=== PATIENT | female | born 1940 | race Caucasian/White ===

== ENCOUNTER 2018-07-08 08:42 | Observation (INO) | payer MEDICARE, OTHER ==
[~2018-07-08] VITALS: Ht 165.1 cm; Wt 99.0 kg
[~2018-07-08 08:42] MED LIST: AMLODIPINE10 MG PO; BENAZEPRIL40 M1 PO; CIPROFLOXACN500 MG PO; ENABLEX15 MG OR; FLONASE NASAL50 MCG; FLORASTOR250 M1 PO; GLIMEPIRIDE2 MG PO; GLIMEPIRIDE4 MG PO; INDOMETHACIN25 MG PO; KEFLEX500 MG PO; LEVEMIR FLEXPEN SC; LOVASTATIN40 MG PO; METFORMIN1000 MG PO; METOPROL TAR25 MG PO; OXYBUTYNIN10 MG OR; PRAVASTATIN20 MG PO; PRILOSEC20 MG PO
--- NOTE | 2018-07-08 08:44 | NUR ---
PT TO ROOM VIA EMS
--- NOTE | 2018-07-08 09:10 | NUR ---
PT STATES THAT SHE NOTICED BLOODY STOOL THAT BEGAN YESTERDAY AT NOON- PT STATES FEELING INCREASED WEAKNESS. PT IS AOX4. STATES NO PAIN AT THIS TIME. PT DENIES ANY C/P, SOB, N/V.
[2018-07-08 09:32] LABS: HEMATOCRIT 41.5 % (37.0-47.0); IMMATURE GRANULOCYTES 0.4 % (0.0-5.0); MEAN CELL VOLUME 91.2 fL CALC (80.0-100.0); MEAN CORPUSCULAR HGB 30.8 pG CALC (26.0-32.0); MEAN CORPUSCULAR HGB CONC 33.7 g/L CALC (32.0-36.0); NEUT# 12.47 thou/uL (2.00-7.15); RED BLOOD COUNT 4.55 mill/uL (4.20-5.60); RED CELL DISTRI WIDTH 13.1 % (11.5-15.5)
[2018-07-08] MEDS ORDERED: GLIMEPIRIDE2 MG PO (09:36)
[2018-07-08 09:42] LABS: ALBUMIN 3.8 g/dL (3.2-5.0); BILIRUBIN, TOTAL 1.3 mg/dL (0.0-1.4); CREATININE 1.2 mg/dL (0.5-1.0); TOTAL PROTEIN 6.4 g/dL (6.3-8.2)
[2018-07-08 09:43] LABS: POTASSIUM 5.2 mmol/l (3.5-5.1)
--- NOTE | 2018-07-08 10:10 | NUR ---
PT RESTING ON STRETCHER, NO COMPLAINTS STATED AT THIS TIME.
--- NOTE | 2018-07-08 10:56 | NUR ---
NURSE IN PT ROOM, WILL RETURN CALL
--- NOTE | 2018-07-08 11:45 | NUR ---
ICU CALLED FOR REPORT- CHRISTOPHER KHANNA ACCEPTED PT
--- NOTE | 2018-07-08 11:45 | NUR ---
ICU CALLED FOR REPORT
--- NOTE | 2018-07-08 11:56 | NUR ---
female pt received to ICU bed 4 (med surg overflow) via stretcher accompanied by Adalberto Heck RN in stable condition; ambulatory to scale then bed with very weak/assisted gait; admission assessment completed at this time; pt alert and oriented; c/c of rectal bleeding with clots starting last night; no n/v associated with bleeding; pt denies pain; resp even and unlabored; lungs clear; skin color wnl; ra; hr reg; strong pulses; trace edema noted to ble; sr on monitor; abd soft with bs present; no rectal bleeding noted per card writer hand at this time; no stool to observe; admits to voiding without pain or burning; no urine to inspect; bsc; stress incont/brief intact; #20 ems site flushed and patent; no redness or edema noted at site; plan of care/ meds explained; call light within reach; will continue to monitor
[2018-07-08 12:00] VITALS: BP 147/73
--- NOTE | 2018-07-08 12:01 | NUR ---
Admission Note Report Given to: CHRISTOPHER Transported by: Wheelchair X Stretcher Transported with: X Nurse Transporter X Patent IV O2 X Lunchroom Food Service Supervisor TRANSPORTED TO ICU 4 WITHOUT INCIDENET
--- NOTE | 2018-07-08 14:10 | NUR ---
awake in bed conversing on cell phone; no apparent distress noted; pt offers no complaints; sr on monitor; call light within reach; will continue to monitor
[2018-07-08 15:08] LABS: CREATININE 1.1 mg/dL (0.5-1.0); POTASSIUM 5.1 mmol/l (3.5-5.1)
[2018-07-08 15:10] LABS: HEMATOCRIT 39.5 % (37.0-47.0); HEMOGLOBIN 13.6 g/dl (12.0-16.0); IMMATURE GRANULOCYTES 0.4 % (0.0-5.0); MEAN CELL VOLUME 91.2 fL CALC (80.0-100.0); MEAN CORPUSCULAR HGB 31.4 pG CALC (26.0-32.0); MEAN CORPUSCULAR HGB CONC 34.4 g/L CALC (32.0-36.0); NEUT# 11.54 thou/uL (2.00-7.15); RED BLOOD COUNT 4.33 mill/uL (4.20-5.60); RED CELL DISTRI WIDTH 13.2 % (11.5-15.5)
[2018-07-08 16:15] VITALS: BP 146/94
--- NOTE | 2018-07-08 16:15 | NUR ---
awake in bed conversing with visitors; no apparent distress noted; pt offers no complaints; denies needs; iv patent; fluids infusing without complication; no redness or edema noted at site; sr on monitor; call light within reach; will continue to monitor
--- NOTE | 2018-07-08 16:50 | NUR ---
Dr Marinelli present at bedside to assess pt and discuss plan of care
--- NOTE | 2018-07-08 17:47 | NUR ---
awake; tolerated meal; offers no complaints; iv patent; no redness or edema noted at site; denies needs; sr on monitor; call light within reach
--- NOTE | 2018-07-08 18:06 | NUR ---
cardinal rx Ericka called per development writer in regards to orders not verified
--- NOTE | 2018-07-08 19:45 | NUR ---
PT. ASSISTED TO BSC AT THIS TIME.
[2018-07-08 20:00] VITALS: BP 119/51
--- NOTE | 2018-07-08 23:46 | NUR ---
PT. RESTING IN BED WITH EYES CLOSED. DENIES COMPLAINTS OF PAIN OR NEED. VSS. WILL CONTINUE TO MONITOR.
[2018-07-09 00:06] VITALS: BP 140/59
--- NOTE | 2018-07-09 01:55 | NUR ---
PT. ASSISTED TO BSC. URINE SPECIMEN OBTAINED FOR LAB SAMPLE.
[2018-07-09 03:54] VITALS: BP 116/52
[2018-07-09 05:58] LABS: URINE BILIRUBIN - DIPSTICK NEGATIVE (NEGATIVE); URINE BLOOD DIPSTICK LARGE (NEGATIVE); URINE COLOR YELLOW; URINE GLUCOSE - DIPSTICK 100 mg/dL (NEGATIVE); URINE KETONE NEGATIVE (NEGATIVE); URINE NITRITE - DIPSTICK NEGATIVE (Negative); URINE PROTEIN - DIPSTICK 100 mg/dL (NEG-TRACE); URINE UROBILINOGEN - DIPSTICK 0.2 E.U./dL (0.2)
[2018-07-09 06:05] LABS: HEMATOCRIT 36.8 % (37.0-47.0); HEMOGLOBIN 12.7 g/dl (12.0-16.0); IMMATURE GRANULOCYTES 0.4 % (0.0-5.0); MEAN CELL VOLUME 90.9 fL CALC (80.0-100.0); MEAN CORPUSCULAR HGB 31.4 pG CALC (26.0-32.0); MEAN CORPUSCULAR HGB CONC 34.5 g/L CALC (32.0-36.0); NEUT# 10.19 thou/uL (2.00-7.15); RED BLOOD COUNT 4.05 mill/uL (4.20-5.60); RED CELL DISTRI WIDTH 13.1 % (11.5-15.5)
[2018-07-09 06:05] LABS: URINE LEUK ESTERASE LARGE (NEGATIVE)
[2018-07-09 06:17] LABS: URINE BACTERIA MODERATE hpf; URINE SQUAMOUS EPITHELIAL CELL FEW EPI/hpf (0-FEW); URINE WBC 50-100 WBC/hpf (0-5)
--- NOTE | 2018-07-09 06:21 | NUR ---
FLAGYL INFUSING ORDERED. NO REACTIONS NOTED. BATH PROVIDED AND LINENS CHANGED AT THIS TIME. PT. TOLERATED WELL. PT. WITH MILD/MODERATE DIFFICULTY AMBULATING. REPORTS SHE LIVES AT HOME ALONE. WILL CONTINUE TO MONITOR.
[2018-07-09 06:35] LABS: ALKALINE PHOSPHATASE 73 u/l (38-126); ANION GAP 14 (6-22 (CALC)); BILIRUBIN, TOTAL 0.9 mg/dL (0.0-1.4); BUN 24 mg/dL (8-23); BUN/CREATININE RATIO 24 (12-20 (CALC)); CARBON DIOXIDE 25 mmol/l (22-30); CHLORIDE 99 mmol/l (95-108); GFR 53 ML/MIN (>=60 (CALC)); GFR FOR AFR.AMER. > 60 ML/MIN (>=60 (CALC)); POTASSIUM 4.9 mmol/l (3.5-5.1); SGOT/AST 18 u/l (9-36); SODIUM 133 mmol/l (137-146); TOTAL PROTEIN 5.6 g/dL (6.3-8.2)
--- NOTE | 2018-07-09 07:05 | NUR ---
resting in bed with eyes closed; easily arousable; assessment completed at this time; pt alert and oriented; admits to back pain; no n/v noted; no reports of abd pain; resp even and unlabored; lungs clear throughout; skin color wnl; ra; hr reg; strong pulses; trace edema noted to ble; sr on monitor; abd soft with bs present; no bm noted per signwriter; no rectal bleeding noted at this time; abd tender with palpation; no urine to inspect at this time; bsc; #20 patent to lac with ivf infusing without complication; no redness or edema noted at site; fluids filled blister noted to right upper buttock/hip; plan of care/ am meds explained; call light within reach; will continue to monitor
[2018-07-09 08:00] VITALS: BP 137/51
--- NOTE | 2018-07-09 08:13 | NUR ---
Dr Marinelli present at bedside to assess pt and discuss plan of care;
--- NOTE | 2018-07-09 10:00 | NUR ---
awake in bed; visitor at bedside; pt offers no complaints; sr on monitor; call light within reach; will continue to monitor
[2018-07-09 12:00] VITALS: BP 141/52
--- NOTE | 2018-07-09 12:05 | NUR ---
awake in chair; continues with complaints of pain to right knee; medicated prev with dilaudid; iv patent; fluids infusing without complication; no redness or edema noted at site; sr on monitor; call light within reach; will continue to monitor
--- NOTE | 2018-07-09 14:00 | NUR ---
awake in chair with visitors present at bedside; offers no complaints; call light within reach; will continue to monitor
--- NOTE | 2018-07-09 15:45 | NUR ---
Dr Marinelli present at bedside
[2018-07-09 16:00] VITALS: BP 142/43
--- NOTE | 2018-07-09 16:00 | NUR ---
awake in chair; complaints of pain to rle with movement only; repositioned for comfort; #20 to lac noted leaking from insertion site; catheter removed with tip intact; sr on monitor; pt deny needs at this time; call light within reach; will continue to monitor
--- NOTE | 2018-07-09 16:35 | NUR ---
unsuccessful iv attempts x2 per program writer and 2 per JEY Lyles
--- NOTE | 2018-07-09 18:01 | NUR ---
pt awake in bed; iv patent; no redness or edema noted at site; sr on monitor; call light within reach
--- NOTE | 2018-07-09 19:10 | NUR ---
REPORT FROM Kameron MCDONALD RN. ASSUMED PT. CARE.
--- NOTE | 2018-07-09 19:30 | NUR ---
PT. FOUND AWAKE, ALERT, ORIENTED X 3. SKIN WARM AND DRY. RESPS EVEN AND UNLABORED. DISTIL PULSES INTACT. IV FLUIDS INFUSING AT 100 CC/HR. CIPRO INFUSED. NO REACTIONS NOTED. PEDAL PULSES INTACT. TRACE EDEMA NOTED. LUNGS CTA. BOWEL SOUNDS PRESENT. STATES WITH MILD ACHING TO LOWER BACK. WILL MEDICATE ORDERED.
[2018-07-09 20:00] VITALS: BP 130/62
--- NOTE | 2018-07-09 21:10 | NUR ---
PT. MEDICATED PER PHYSICIAN ORDERS. REPORTS PAIN OF 5/10 AT THIS TIME. WILL MONITOR FOR EFFECT OF PAIN MEDICATIONS. REMAINS STABLE ON THE MONITOR. VSS. CALL LIGHT REMAINS WITHIN REACH.
[2018-07-10] VITALS: BP 128/43
--- NOTE | 2018-07-10 00:52 | NUR ---
PT. RESTING IN BED IN NO DISTRESS. RESPS REMAIN EVEN AND UNLABORED. AFEBRILE. IV FLUIDS CONTINUE TO INFUSE AT 100 CC/HR. DENIES COMPLAINTS OF PAIN OR NEED AT THIS TIME. WILL CONTINUE TO MONITOR.
--- NOTE | 2018-07-10 03:15 | NUR ---
PT. RESTING IN BED WITH EYES CLOSED. DENIES COMPLAINTS OF PAIN OR NEEDS. IV FLUIDS CONTINUE TO INFUSE WITHOUT SX OF INFILTRATION. WILL CONTINUE TO MONITOR.
[2018-07-10 04:00] VITALS: BP 125/61
--- NOTE | 2018-07-10 05:15 | NUR ---
LAB AT BEDSIDE AT THIS TIME. PT. ASSISTED TO BSC. PT. FOUND HEAVILY INCONTINENT TO BRIEF. UNDERPAD DRY AT THIS TIME. UNDERPAD CHANGED AT THIS TIME. PT. ASSISTED WITH CLOTH AND SELF-CHRISTY CARE. ASSISTED BACK TO BED WITH MODERATE ASSISTANCE.
[2018-07-10 05:50] LABS: HEMATOCRIT 36.7 % (37.0-47.0); HEMOGLOBIN 12.1 g/dl (12.0-16.0); IMMATURE GRANULOCYTES 0.6 % (0.0-5.0); MEAN CELL VOLUME 92.9 fL CALC (80.0-100.0); MEAN CORPUSCULAR HGB 30.6 pG CALC (26.0-32.0); NEUT# 8.48 thou/uL (2.00-7.15); RED BLOOD COUNT 3.95 mill/uL (4.20-5.60)
[2018-07-10 06:13] LABS: ALBUMIN 3.1 g/dL (3.2-5.0); BILIRUBIN, TOTAL 0.7 mg/dL (0.0-1.4); CREATININE 1.3 mg/dL (0.5-1.0); POTASSIUM 4.7 mmol/l (3.5-5.1); TOTAL PROTEIN 5.7 g/dL (6.3-8.2)
[2018-07-10 07:40] VITALS: BP 132/55
--- NOTE | 2018-07-10 07:40 | NUR ---
ASSESSMENT IS COMPLTED: PT HAS BEEN RESTING ABLE TO GET UP TO THE BSC WITH STAND BY ASSIST, IV SITE IS FREE FROM REDNESS OR EDEMA. HR IS REG,PULSES ARE STRONG X4, ABD IS SOFT WITH ACTIVE BS. BREATH SOUNDS ARE CLEAR,BILATERALLY. CONTINUE TO OSBERVE AND MONITOR.
[2018-07-10 08:00] VITALS: BP 132/55
[2018-07-10 12:00] VITALS: BP 92/42
--- NOTE | 2018-07-10 12:00 | NUR ---
PT IS SITTING IN THE CHAIR, NO DISTRESS NOTED., IV SITE IS FREE FROM REDNESS OR EDEMA. NO DISTRESS NOTED. CONITNUE TO OSBERVE AND MONITOR.
[2018-07-10] MEDS ORDERED: CIPROFLOXACN500 MG PO (12:29)
[2018-07-10] MEDS ORDERED: METRONIDAZOL500 MG PO (12:30)
--- NOTE | 2018-07-10 14:00 | NUR ---
PT RECEIVED DISCHARGE INSTRUCTIONS AND VERBALIZED UNDERSTANDING,. WAITING ON FRIEND TO COME AND TRANSPORT HOME. IV SITE DISCONTINUED CATHETER INTACT. Discharge instructions given. Patient verbalizes understanding of same. Discharged in stable condition via Wheelchair to Home with family. All belongings sent with pt.
== END 2018-07-10 14:00 | disposition home or self-care (01) ==
LOC: ED 08:42 → ED-I 09:35 → ED 09:57 → ICU 09:58
PROVIDERS: Family Medicine; ADMIT Internal Medicine Geriatric Medicine; ATTEND Internal Medicine Geriatric Medicine
PROC: 3E0234Z Introduction of Serum, Toxoid and Vaccine into Muscle, Percutaneous Approach (ICD-10-PCS; principal; 2018-07-10)
DX: K50.111 Crohn's disease of large intestine with rectal bleeding (principal); I10 Essential (primary) hypertension; E78.5 Hyperlipidemia, unspecified; E11.9 Type 2 diabetes mellitus without complications; I25.10 Atherosclerotic heart disease of native coronary artery without angina pectoris; M19.90 Unspecified osteoarthritis, unspecified site; Z23 Encounter for immunization